=== PATIENT | male | born 2000 | race Caucasian/White ===

== ENCOUNTER 2025-02-15 20:36 | Emergency (ER) | payer BC ==
[2025-02-15 21:44] VITALS: BP 115/57; PULSE 90
== END 2025-02-15 21:38 | disposition home or self-care (01) ==
LOC: FB.ED 20:36
DX: T16.1XXA Foreign body in right ear, initial encounter (principal); F17.210 Nicotine dependence, cigarettes, uncomplicated; W44.8XXA Other foreign body entering into or through a natural orifice, initial encounter; Y93.89 Activity, other specified
CPT/HCPCS: 99282